=== PATIENT | female | born 1940 | race Two or more races ===

== ENCOUNTER → 2016-04-07 | Outpatient (CLI) | payer MEDICARE ==
[2014-03-05 14:08] VITALS: BP 168/74
[~2016-04-07] MED LIST: HYDR25TA9 PO; LOSA100T6 PO; METO-269 PO; SIMV20TA3 PO
[2016-04-07 16:54] LABS: OBC FLU VALID
== END | disposition home or self-care (01) ==
LOC: LAB 15:48
PROVIDERS: ATTEND Nurse Practitioner Family
DX: J11.1 Influenza due to unidentified influenza virus with other respiratory manifestations (principal)
CPT/HCPCS: 36415; 87804

== ENCOUNTER 2016-06-30 19:50 | Emergency (ER) | payer MEDICARE ==
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
[2016-06-30] MEDS ORDERED: ACETAMINOPHEN 325 MG TABLET. PO ONE (20:30)
[2016-06-30] MEDS ORDERED: amLODIPine BESYLATE 5 MG TABLET PO ONE ×2 (21:30)
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
[2016-06-30 22:00] VITALS: BP 137/67
== END 2016-06-30 22:15 | disposition home or self-care (01) ==
LOC: ER 19:50
DX: S63.601A Unspecified sprain of right thumb, initial encounter (principal); S90.32XA Contusion of left foot, initial encounter; S09.90XA Unspecified injury of head, initial encounter; I10 Essential (primary) hypertension; R41.3 Other amnesia; Z86.73 Personal history of transient ischemic attack (TIA), and cerebral infarction without residual deficits; Z90.710 Acquired absence of both cervix and uterus; V49.59XA Passenger injured in collision with other motor vehicles in traffic accident, initial encounter; Y93.89 Activity, other specified; Y92.89 Other specified places as the place of occurrence of the external cause; Y99.8 Other external cause status
CPT/HCPCS: 70450; 99284-25